=== PATIENT | female | born 1945 | race Caucasian/White ===

== ENCOUNTER 2020-01-22 13:31 | Outpatient (CLI) | payer MEDICARE, OTHER ==
[2020-01-22 14:19] LABS: Anion Gap 20 mmol/L (10-20); BUN (Urea Nitrogen) 57 mg/dL (9.8-20.1); Calc. Creatinine Clearance 0 mL/min (70-130); Calcium 8.4 mg/dL (7.8-10.44); Carbon Dioxide 17 mmol/L (23-31); Chloride 103 mmol/L (98-107); Estimated GFR-MDRD 7; Glucose 187 mg/dL (83-110); Phosphorus 7.3 mg/dL (2.3-4.7); Sodium 135 mmol/L (136-145)
[2020-01-22 22:22] LABS: Creatinine, Urine 57.22 mg/dL (47-110)
[2020-01-22 22:30] LABS: Microalbumin Urine Greater than 200.0 mg/dL (0.5-50.0)
[2020-01-22 22:32] LABS: Protein, Urine Random Quant 501 mg/dL (1-14)
== END 2020-01-22 13:32 | disposition home or self-care (01) ==
LOC: MADLABSP 13:31
PROVIDERS: ATTEND Internal Medicine Nephrology
DX: E11.69 Type 2 diabetes mellitus with other specified complication (principal); I13.0 Hypertensive heart and chronic kidney disease with heart failure and stage 1 through stage 4 chronic kidney disease, or unspecified chronic kidney disease; E11.22 Type 2 diabetes mellitus with diabetic chronic kidney disease; N18.9 Chronic kidney disease, unspecified
CPT/HCPCS: 80048; 82043; 84100; 84156

== ENCOUNTER 2020-01-29 15:37 | Outpatient (CLI) | payer MEDICARE, OTHER ==
[2020-01-29 16:00] LABS: Anion Gap 20 mmol/L (10-20); BUN (Urea Nitrogen) 45 mg/dL (9.8-20.1); Calc. Creatinine Clearance 0 mL/min (70-130); Calcium 8.5 mg/dL (7.8-10.44); Carbon Dioxide 15 mmol/L (23-31); Chloride 106 mmol/L (98-107); Estimated GFR-MDRD 8; Glucose 82 mg/dL (83-110); Potassium 4.2 mmol/L (3.5-5.1); Sodium 137 mmol/L (136-145)
== END 2020-01-29 15:38 | disposition home or self-care (01) ==
LOC: MADLAB 15:37
PROVIDERS: ATTEND Internal Medicine Nephrology
DX: N18.4 Chronic kidney disease, stage 4 (severe) (principal)
CPT/HCPCS: 80048

== ENCOUNTER 2020-02-15 14:56 | Outpatient (CLI) | payer MEDICARE, OTHER ==
[2020-02-15 15:31] LABS: Anion Gap 20 mmol/L (10-20); BUN (Urea Nitrogen) 56 mg/dL (9.8-20.1); Calc. Creatinine Clearance 0 mL/min (70-130); Calcium 9.9 mg/dL (7.8-10.44); Carbon Dioxide 16 mmol/L (23-31); Chloride 105 mmol/L (98-107); Glucose 116 mg/dL (83-110); Potassium 4.6 mmol/L (3.5-5.1); Sodium 136 mmol/L (136-145)
== END 2020-02-15 14:57 | disposition home or self-care (01) ==
LOC: MADLABSP 14:56
PROVIDERS: ATTEND Internal Medicine Nephrology
DX: N18.5 Chronic kidney disease, stage 5 (principal)
CPT/HCPCS: 80048